=== PATIENT | female | born 1985 | race Two or more races ===

== ENCOUNTER 2024-10-21 16:27 | Emergency (ER) | payer MEDICAID, SELFPAY ==
[2024-10-21 16:29] VITALS: BMI 36.2
[2024-10-21 16:36] VITALS: BP 140/91; PULSE 93; RESP 18; TEMP 37.1; O2SAT 97
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
[2024-10-21] MEDS: KETOROLAC INJ 60 MG/2 ML VIAL IM (17:54)
[2024-10-21] MEDS: METOCLOPRAMIDE INJ 5 MG/ML VIAL 2 ML 10 MG IM (17:55)
[2024-10-21] MEDS: CYCLObenzaPRINE 5 MG TABLET PO (17:55)
== END 2024-10-21 19:08 | disposition home or self-care (01) ==
LOC: SERX 19:33
PROVIDERS: Emergency Provider Emergency Medicine
DX: S40.012A Contusion of left shoulder, initial encounter (principal); V49.9XXA Car occupant (driver) (passenger) injured in unspecified traffic accident, initial encounter
CPT/HCPCS: 73030; 96372; 99283; J1885; J2765; A9270